=== PATIENT | male | born 1970 | race Caucasian/White ===

== ENCOUNTER 2020-02-04 14:15 | Emergency (ER) | payer OTHER ==
[~2020-02-04] VITALS: Ht 198.1 cm; Wt 92.1 kg
== END 2020-02-04 21:38 | disposition home or self-care (01) ==
LOC: ER 14:15 → CPU-OBS 15:27 → ER 21:38
DX: R07.89 Other chest pain (principal)
CPT/HCPCS: G0378; G0379; 93005